=== PATIENT | male | born 1980 | race Caucasian/White ===

== ENCOUNTER 2018-01-10 20:15 | Emergency (ER) | payer OTHER ==
[2018-01-10] MEDS ORDERED: diphenhydrAMINE 50 MG/ML SDV IM ONE (20:26)
[2018-01-10] MEDS ORDERED: Cetirizine 10 MG Tab PO ONE (20:27)
[2018-01-10] MEDS ORDERED: methylPREDNISolone Sodium Succinate 125 MG/2 ML SDV IM ONE (20:44)
--- NOTE | 2018-01-10 20:49 | EDM.PDOC ---
ED HPI GENERAL MEDICAL PROBLEM - General Chief Complaint: ENT Problem Stated Complaint: THROAT SWELLING Time Seen by Provider: 01/10/18 20:28 Source of Information: Reports: Patient History Limitations: Reports: No Limitations - History of Present Illness INITIAL COMMENTS - FREE TEXT/NARRATIVE: HISTORY AND PHYSICAL: []37-year-old male presenting with difficulty breathing and swallowing History of Present Illness: []Patient has influenza and was treated at local clinic given Tamiflu Medrol for his wheezing and Zithromax The Medrol got stuck in his throat this morning and now seems that he has what sounds like spasms now. This causes him to panic when he can't breathe Review of Systems: As per history of present illness and below otherwise all systems reviewed and negative. Past medical history: As per history of present illness and as reviewed below otherwise noncontributory. Surgical history: As per history of present illness and as reviewed below otherwise noncontributory. Social history: No reported history of drug or alcohol abuse. Family history: As per history of present illness and as reviewed below otherwise noncontributory. Physical exam: Alert and oriented male who is warm and moist skin answering questions appropriately somewhat hoarse with speaking. HEENT: Atraumatic, normocehpalic, pupils reactive, negative for conjunctival pallor or scleral icterus, mucous membranes moist, throat clear, neck supple, nontender, trachea midline. Lungs: Clear to auscultation, breath sounds equal bilaterally, chest non tender. Heart: S1S2, regular, negative for clicks, rubs, or JVD. Abdomen: Soft, nondistended, nontender. Negative for masses or hepatossplenmegaly. Negative for costovertebral tenderness. Pelvis: Stable nontender. Genitourinary: Deferred. Rectal: Deferred Extremities: Atraumatic, negative for cords or calf pain. Neurovascular unremarkable. Neuro: Awake, alert, oriented. Cranial nerves II through XII unremarkable. Cerebellum unremarkable. Motor and sensory unremarkable throughout. Exam nonfocal. Patient improved with the treatments were given/verbalized understanding of discharge instructions Diagnostics: [] Therapeutics: [Benadryl 50 IM Solu-Medrol IM] Zyrtec 10 mg by mouth Impression: [Reaction from the medication] Plan: []Discharged to home Benadryl by mouth 2 capsules (50 mg) every 4 hours for difficulty Zyrtec [id number] 1 tablet of 10 mg daily 1 week Definitive disposition and diagnosis as appropriate pending reevaluation and review of above. Onset: Sudden Duration: Hour(s): Location: Reports: Neck Quality: Reports: Other Severity: Mild Improves with: Reports: None Worsens with: Reports: None Treatments [employer]: Reports: Other (see below) (drinking water) - Related Data Allergies Allergy/AdvReac Type Severity Reaction Status Date / Time cats Allergy Sneezing Uncoded 01/10/18 20:30 Home Meds: Home Meds Albuterol Sulfate [Proventil Hfa] 1 puff INH ASDIRECTED PRN 01/10/18 [History] Albuterol [Proventil Neb Soln] 1 inh INH ASDIRECTED PRN 01/10/18 [History] Azithromycin 500 mg PO DAILY 01/10/18 [History] Methylprednisolone [IJD: Methylprednisolone] 4 mg PO DAILY 01/10/18 [History] Oseltamivir [Tamiflu] 75 mg PO BID 01/10/18 [History] Past Medical History Respiratory History: Reports: Asthma Gastrointestinal History: Reports: None - Infectious Disease History Infectious Disease History: Reports: Chicken Pox - Past Surgical History GI Surgical History: Reports: Hernia, Abdominal Social & Family History - Family History Family Medical History: Noncontributory - Tobacco Use Smoking Status *Q: Never Smoker Second Hand Smoke Exposure: No - Caffeine Use Caffeine Use: Reports: Soda - Recreational Drug Use Recreational Drug Use: No ED ROS ENT - Review of Systems Review Of Systems: ROS reveals no pertinent complaints other than HPI. ED EXAM, ENT - Physical Exam Exam: See Below (See dictation) Course - Vital Signs Last Recorded V/S: Last Vital Signs Temp 36.5 C 01/10/18 20:25 Pulse 140 H 01/10/18 20:25 Resp 20 01/10/18 20:25 BP 138/97 H 01/10/18 20:25 Pulse Ox 97 01/10/18 20:25 - Orders/Labs/Meds Orders: Active Orders 24 hr Category Date Time Status methylPREDNISolone Sod Succ [Solu-MEDROL] Med 01/10/18 20:44 Once 125 mg IM ONETIME ONE Medication Orders Methylprednisolone Sodium Succinate (Solu-Medrol) 125 mg IM ONETIME ONE Stop: 01/10/18 20:45 Meds: Medications Generic Name Dose Route Start Last Admin Trade Name Freq PRN Reason Stop Dose Admin Methylprednisolone Sodium Succinate 125 mg 01/10/18 20:44 Solu-Medrol IM 01/10/18 20:45 ONETIME ONE Discontinued Medications Generic Name Dose Route Start Last Admin Trade Name Freq PRN Reason Stop Dose Admin Cetirizine HCl 10 mg 01/10/18 20:27 01/10/18 20:34 Zyrtec PO 01/10/18 20:28 10 mg ONETIME ONE Administration Diphenhydramine HCl 50 mg 01/10/18 20:26 01/10/18 20:33 Benadryl IM 01/10/18 20:27 50 mg ONETIME ONE Administration Departure - Departure Time of Disposition: 20:49 Disposition: Home, Self-Care 01 Condition: Good Clinical Impression: Medication reaction Qualifiers: Encounter type: initial encounter Qualified Code(s): T88.7XXA - Unspecified adverse effect of drug or medicament, initial encounter - Discharge Information Referrals: PCP,None [Primary Care Provider] - Additional Instructions: The following information is given to patients seen in the emergency department who are being discharged to home. This information is to outline your options for follow-up care. We provide all patients seen in our emergency department with a follow-up referral. The need for follow-up, as well as the timing and circumstances, are variable depending upon the specifics of your emergency department visit. If you don't have a primary care physician on staff, we will provide you with a referral. We always advise you to contact your personal physician following an emergency department visit to inform them of the circumstance of the visit and for follow-up with them and/or the need for any referrals to a consulting specialist. The emergency department will also refer you to a specialist when appropriate. This referral assures that you have the opportunity for followup care with a specialist. All of these measure are taken in an effort to provide you with optimal care, which includes your followup. Under all circumstances we always encourage you to contact your private physician who remains a resource for coordinating your care. When calling for followup care, please make the office aware that this follow-up is from your recent emergency room visit. If for any reason you are refused follow-up, please contact the [facility] emergency department at and asked to speak to the emergency department charge nurse. Found to have a reaction to this medication although I believe it is more of a reaction to the pill sticking to your throat To avoid any further spasms will give you an injection of Solu-Medrol while in the emergency room and avoid taking the Medrol Dosepak that you have Continue with Benadryl 50 mg every 4 hours as needed Continue with Zyrtec 10 mg one daily for 1 week Follow-up with your primary care provider next week Any worsening of symptoms please return to emergency room immediately - My Orders Last 24 Hours: My Active Orders 01/10/18 20:44 methylPREDNISolone Sod Succ [Solu-MEDROL] 125 mg IM ONETIME ONE - Assessment/Plan Last 24 Hours: My Active Orders 01/10/18 20:44 methylPREDNISolone Sod Succ [Solu-MEDROL] 125 mg IM ONETIME ONE
== END 2018-01-10 21:15 | disposition home or self-care (01) ==
LOC: MW.ED 20:15
DX: R13.10 Dysphagia, unspecified (principal); T38.0X5A Adverse effect of glucocorticoids and synthetic analogues, initial encounter; J45.909 Unspecified asthma, uncomplicated; Z79.2 Long term (current) use of antibiotics; Z79.52 Long term (current) use of systemic steroids; Z91.09 Other allergy status, other than to drugs and biological substances
CPT/HCPCS: 96372; 99283; A9270; J1200; J2930